=== PATIENT | female | born 1960 | race Caucasian/White ===

== ENCOUNTER → 2017-05-22 | Outpatient (REF) | payer OTHER | LOC: M SFHCWAGY 11:22 | PROVIDERS: ATTEND Nurse Practitioner Women's Health | DX: Z12.4 Encounter for screening for malignant neoplasm of cervix (principal) ==

== ENCOUNTER → 2017-05-22 | Outpatient (CLI) | payer OTHER ==
--- NOTE | 2017-05-22 12:26 | REPMRS ---
Patient History The patient states she had a clinical breast exam in 05/2017. Patient is postmenopausal. Family history of breast cancer in mother at age 50 or over, breast cancer in 3 paternal aunts at age 50 or over, breast cancer in paternal grandmother, breast cancer in paternal cousin at age 30, breast cancer in paternal cousin at age 40, breast cancer in paternal cousin at age 28, and colorectal cancer in paternal uncle. Reductions of both breasts, 1990. Taking estrogen for 3 years. Digital Woman Screen Mammo: May 22, 2017 - Exam #: [id number] Bilateral CC and MLO view(s) were taken. Technologist: Irina Rodriguez, Technologist Prior study comparison: May 21, 2016, digital woman screen mammo performed at [facility]. May 18, 2015, digital woman screen mammo performed at [facility]. FINDINGS: There are scattered fibroglandular densities. There has been no change in the appearance of the mammogram from the prior studies. There is a mild amount of residual fibroglandular tissue which is fairly symmetric. There is no interval development of dominant mass, architectural distortion, or clustered microcalcification suggestive of malignancy. ASSESSMENT: BI-RADS/ACR category 1 mammogram. Negative. Recommendation Routine screening mammogram in 1 year (for women over age 40). This mammogram was interpreted with the aid of an FDA-approved computer-aided dectection system. Electronically Signed By: Eleazar Rockwell MD 05/22/17 [id number]
== END ==
LOC: M WHC 10:30
PROVIDERS: ATTEND Nurse Practitioner Women's Health
DX: Z12.31 Encounter for screening mammogram for malignant neoplasm of breast (principal); Z80.3 Family history of malignant neoplasm of breast; Z79.890 Hormone replacement therapy

== ENCOUNTER → 2018-05-25 | Outpatient (CLI) | payer OTHER | LOC: M WHC 10:43 | DX: Z12.31 Encounter for screening mammogram for malignant neoplasm of breast (principal); Z78.0 Asymptomatic menopausal state; R92.1 Mammographic calcification found on diagnostic imaging of breast; Z92.89 Personal history of other medical treatment; Z92.23 Personal history of estrogen therapy; Z80.3 Family history of malignant neoplasm of breast | CPT/HCPCS: 77067 ==

== ENCOUNTER → 2018-12-07 | Outpatient (REF) | payer OTHER | LOC: M LAB LCGH 13:43 | PROVIDERS: ATTEND Nurse Practitioner Family | DX: D48.9 Neoplasm of uncertain behavior, unspecified (principal) ==

== ENCOUNTER → 2019-05-26 | Outpatient (CLI) | payer OTHER ==
--- NOTE | 2019-05-26 12:29 | REPMRS ---
Patient History The patient states she had a clinical breast exam in 05/2019. Patient is postmenopausal and has history of basal cell cancer at age 58. Family history of breast cancer at age 50 or over in mother, breast cancer at age 50 or over in paternal aunt, breast cancer at age 50 or over in paternal aunt, breast cancer at age 50 or over in paternal aunt, colorectal cancer in paternal uncle, breast cancer at age 30 in paternal cousin, breast cancer at age 40 in paternal cousin, breast cancer at age 28 in paternal cousin, breast cancer in paternal grandmother. Reductions of both breasts, 1990. Took estrogen for 4 years. Digital Woman Screen Mammo: May 26, 2019 - Exam #: [id number] Bilateral CC and MLO view(s) were taken. Technologist: Irina Rodriguez, Technologist Prior study comparison: May 25, 2018, bilateral digital woman screen mammo performed at [facility]. May 22, 2017, digital woman screen mammo performed at [facility]. FINDINGS: There are scattered fibroglandular densities. There has been no change in the appearance of the mammogram from the prior studies. There is a mild amount of residual fibroglandular tissue which is fairly symmetric. There is no interval development of dominant mass, architectural distortion, or clustered microcalcification suggestive of malignancy. Assessment: BI-RADS/ACR category 1 mammogram. Negative Mammogram. Recommendation Routine screening mammogram in 1 year (for women over age 40). This mammogram was interpreted with the aid of an FDA-approved computer-aided dectection system. THE LIFETIME RISK OF BREAST CANCER IS 21.3%, THEREFORE SUPPLEMENTAL SCREENING MRI OF THE BREASTS IS RECOMMENDED IN 6 MONTHS. Electronically Signed By: Eleazar Rockwell MD 05/26/19 [id number]
== END ==
LOC: M WHC 10:10
PROVIDERS: ATTEND Nurse Practitioner Women's Health
DX: Z12.31 Encounter for screening mammogram for malignant neoplasm of breast (principal); Z80.3 Family history of malignant neoplasm of breast; Z78.0 Asymptomatic menopausal state

== ENCOUNTER → 2020-05-29 | Outpatient (CLI) | payer BC, OTHER ==
--- NOTE | 2020-05-29 12:06 | REPMRS ---
Patient History The patient states she had a clinical breast exam in 05/26 Family history of breast cancer at age 50 or over in mother, breast cancer at age 50 or over in paternal aunt, breast cancer at age 50 or over in paternal aunt, breast cancer at age 50 or over in paternal aunt, colorectal cancer in paternal uncle, breast cancer at age 30 in paternal cousin, breast cancer at age 40 in paternal cousin, breast cancer at age 28 in paternal cousin, breast cancer in paternal grandmother. Reductions of both breasts, 1990. Took estrogen for 4 years. 3D TOMOSYNTHESIS WAS PERFORMED. [employer]wave breast density a. Digital Woman Screen Mammo: May 29, 2020 - Exam #: [id number] Bilateral CC and MLO view(s) were taken. Technologist: Genia Francois, Technologist Prior study comparison: May 26, 2019, bilateral digital woman screen mammo performed at [facility]. May 25, 2018, bilateral digital woman screen mammo performed at [facility]. FINDINGS: There are scattered fibroglandular densities. There has been no change in the appearance of the mammogram from the prior studies. There is a mild amount of residual fibroglandular tissue which is fairly symmetric. There is no interval development of dominant mass, architectural distortion, or clustered microcalcification suggestive of malignancy. Assessment: BI-RADS/ACR category 1 mammogram. Negative Mammogram. Recommendation Routine screening mammogram in 1 year (for women over age 40). This mammogram was interpreted with the aid of an FDA-approved computer-aided dectection system. THE LIFETIME RISK OF BREAST CANCER IS 20.7%, THEREFORE SUPPLEMENTAL SCREENING MRI OF THE BREASTS IS RECOMMENDED IN 6 MONTHS. Electronically Signed By: Eleazar Rockwell MD 05/29/20 [id number]
== END ==
LOC: M WHC 10:53
PROVIDERS: ATTEND Nurse Practitioner Women's Health
DX: Z12.31 Encounter for screening mammogram for malignant neoplasm of breast (principal); Z80.3 Family history of malignant neoplasm of breast; Z15.01 Genetic susceptibility to malignant neoplasm of breast

== ENCOUNTER → 2020-05-29 | Outpatient (REF) | payer BC, OTHER | LOC: M SFHCWAGY 13:23 | PROVIDERS: ATTEND Nurse Practitioner Women's Health | DX: Z12.4 Encounter for screening for malignant neoplasm of cervix (principal); R87.610 Atypical squamous cells of undetermined significance on cytologic smear of cervix (ASC-US) | CPT/HCPCS: 87624; G0123 ==

== ENCOUNTER → 2023-01-17 | Outpatient (REF) | payer BC | LOC: M SFHCWAGY 17:31 | PROVIDERS: ATTEND Nurse Practitioner Women's Health | DX: Z12.4 Encounter for screening for malignant neoplasm of cervix (principal) ==

== ENCOUNTER → 2023-01-17 | Outpatient (CLI) | payer BC | LOC: M WHC 13:34 | PROVIDERS: ATTEND Nurse Practitioner Women's Health | DX: Z12.31 Encounter for screening mammogram for malignant neoplasm of breast (principal) ==

== ENCOUNTER → 2024-10-11 | Outpatient (CLI) | payer BC ==
[2024-10-11 14:10] LABS: INR 0.88; PROTHROMBIN TIME 12.3 SECONDS (12.5-14.5)
[2024-10-11 14:24] LABS: HEMATOCRIT 39.2 % (36.0-47.0); MEAN CORPUSCULAR HEMOGLOBIN 28.6 pg (27.0-33.0); MEAN CORPUSCULAR HGB CONC 33.2 g/dl (32.0-36.5); MEAN CORPUSCULAR VOLUME 86.3 fl (80.0-96.0); PLATELET COUNT, AUTOMATED 239 10^3/uL (150-450); RED BLOOD COUNT 4.54 10^6/uL (4.00-5.40); WHITE BLOOD COUNT 5.6 10^3/uL (4.0-10.0)
[2024-10-11 14:33] LABS: ERYTHROCYTE SEDIMENTATION RATE 10 mm/hr (0-30)
[2024-10-11 15:01] LABS: ALBUMIN 3.8 G/DL (3.2-5.2); ALKALINE PHOSPHATASE 65 U/L (35-104); ALT/SGPT 22 U/L (7.0-40); AST/SGOT 19 U/L (<34); BILIRUBIN,TOTAL 0.4 MG/DL (0.3-1.2); BLOOD UREA NITROGEN 10 MG/DL (9-23); CALCIUM LEVEL 9.9 MG/DL (8.3-10.6); CARBON DIOXIDE LEVEL 27 MMOL/L (20-31); CHLORIDE LEVEL 108 MMOL/L (98-107); CREATININE FOR GFR 0.69 MG/DL (0.55-1.30); GLOMERULAR FILTRATION RATE > 60.0 (>45); GLUCOSE, FASTING 85 MG/DL (74-106); POTASSIUM SERUM 4.5 MMOL/L (3.5-5.1); SODIUM LEVEL 143 MMOL/L (136-145); TOTAL PROTEIN 6.7 G/DL (5.7-8.2)
== END ==
LOC: M RAD 12:45
PROVIDERS: ATTEND Orthopaedic Surgery
DX: Z01.818 Encounter for other preprocedural examination (principal)